=== PATIENT | female | born 1950 | race Caucasian/White ===

== ENCOUNTER 2021-07-06 09:11 | Day surgery (SDC) | payer MEDICARE, BC ==
[~2021-07-06] VITALS: Ht 170.2 cm; Wt 90.7 kg
[2021-07-06] VITALS (7 sets, daily range): BP systolic 128–162; BP diastolic 60–90
[~2021-07-06 09:11] MED LIST: ATOR40TA71 PO; EST1T PO; FLUT1BLS3 INH; PANT-47 PO; SPIIN INH
[2021-07-06] MEDS ORDERED: AMYL1CAP55 PO (10:19)
[2021-07-06] MEDS ORDERED: IOPAMIDOL 10 ML VIAL IT ONE (10:20)
== END 2021-07-06 15:25 | disposition home or self-care (01) ==
LOC: SSTAY O 09:11
PROVIDERS: ATTEND Specialist
DX: M96.1 Postlaminectomy syndrome, not elsewhere classified (principal); M48.061 Spinal stenosis, lumbar region without neurogenic claudication; M47.816 Spondylosis without myelopathy or radiculopathy, lumbar region; J44.9 Chronic obstructive pulmonary disease, unspecified; Z72.89 Other problems related to lifestyle; Z98.890 Other specified postprocedural states; Z88.8 Allergy status to other drugs, medicaments and biological substances; Z79.899 Other long term (current) drug therapy
CPT/HCPCS: 62270; 72132; 72265; C1769; Q9966; 72131

== ENCOUNTER 2025-06-03 08:10 | Outpatient (CLI) | payer MEDICARE, BC ==
[2025-06-03] VITALS (11 sets, daily range): BP systolic 78–151; BP diastolic 51–82; PULSE 61–88
[~2025-06-03 08:10] MED LIST changes: +AMYL1CAP54 PO
== END 2025-06-03 23:59 | disposition home or self-care (01) ==
LOC: CARD DIAG 08:10
PROVIDERS: ATTEND Internal Medicine Interventional Cardiology
DX: I95.1 Orthostatic hypotension (principal); E78.5 Hyperlipidemia, unspecified; J44.9 Chronic obstructive pulmonary disease, unspecified
CPT/HCPCS: 93660